=== PATIENT | female | born 1995 | race Two or more races ===

== ENCOUNTER 2018-02-15 16:30 | Emergency (ER) | payer MEDICAID ==
[~2018-02-15] VITALS: Ht 162.6 cm; Wt 81.6 kg
--- NOTE | 2018-02-15 16:52 | NUR ---
ED Nurse Note: Pt came in from work due to pain on L sided check that radiates to neck, get worse with movement 8/10 daniel 1 hr prior to arrival. 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 AOx4, VSS. Will cont to monitor.
[2018-02-15 16:53] VITALS: BP 120/80
--- NOTE | 2018-02-15 17:28 | NUR ---
ED Nurse Note: Xray at the bedside.
--- NOTE | 2018-02-15 17:48 | Emergency Room Report ---
History of Present Illness General Chief Complaint: Chest Pain Source: Patient Present Illness HPI 22-year-old female patient presents the ER complaining of pain times 1 day. Reports pain symptoms began about an hour ago. Denies history of similar symptom in the past. Denies history of [place], stroke, heart attack, asthma. Denies fever or shortness of breath. Denies calf pain. Denies contacts with similar symptoms. Reports pain is reproducible. Reports pain on top of chest. Reports pain with palpation. Denies acute injury or trauma. Denies other aggravating or relieving factors. Denies cough. Patient History Past Medical History: see triage record Now: No Reviewed Nursing Documentation: PMH: Agreed; PSxH: Agreed Nursing Documentation-PMH Past Medical History: No Stated History Hx Asthma: No - was given an inhaler Review of Systems All Other Systems: negative except mentioned in HPI Physical Exam Vital Signs Date Time Temp Pulse Resp B/P (MAP) Pulse Ox O2 Delivery O2 Flow Rate FiO2 02/15/18 16:41 98.4 86 15 118/83 96 Room Air 02/15/18 16:53 98 Sp02 EP Interpretation: reviewed, normal General Appearance: well appearing, no apparent distress, alert, GCS 15, non- toxic Head: normocephalic, atraumatic Eyes: bilateral eye normal inspection, bilateral eye PERRL ENT: hearing grossly normal, normal pharynx, no angioedema, normal voice, uvula midline, moist mucus membranes Neck: full range of motion Respiratory: lungs clear, normal breath sounds, no rhonchi, no respiratory distress, no accessory muscle use, no wheezing, speaking full sentences, other - chest tender to palpation, no deformity, no flail chest, no stridor Cardiovascular #1: regular rate, rhythm, no edema Gastrointestinal: non tender, soft, no mass, non-distended, no guarding, no rebound Genitourinary: no CVA tenderness Musculoskeletal: back normal, digits/nails normal, gait/station normal, normal range of motion, non-tender Neurologic: alert, oriented x3, responsive, motor strength/tone normal, sensory intact Psychiatric: mood/affect normal Skin: no rash Lymphatic: no adenopathy Medical Decision Making PA Attestation Dr. Arnett is my supervising Physician whom patient management has been discussed with. Diagnostic Impression: Primary Impression: Nonspecific chest pain ER Course Pt presents to ED c/o chest pain for the past few hours. DDX considered but are not limited to influenza, viral URI, pneumonia, costochondritis, pericarditis, [place], CHF, pneumothorax. On PE, chest is TTP; chest pain likely musculoskeletal in nature, does not require cardiac workup at this time. Patient instructed to take NSAIDs as needed for pain symptoms. VITAL SIGNS are WNL, patient is afebrile. ER COURSE: Provided with pain medication. Lungs clear to auscultation, no wheezes, rhonci or rales. patient afebrile. CXR negative for acute disease. EKG shows no ST elevation or afib. Pain reproducible, chest TTP, CXR and EKG negative, low suspicion for cardiac etiology of symptoms, likely MSK in nature. Advised patient to followup with PCP and discuss referral to cardiology for stress testing and further evaluation. Symptomatic treatment. Will provide muscle relaxant for muscular pain. drink plenty of fluids. Followup with PCP for further treatment and/or referral as needed. ER precautions given. DISCHARGE: At this time pt is stable for d/c to home. Patient is resting comfortably, in no acute distress, nontoxic appearing. Patient to take medications as instructed Will provide with patient care instructions and any necessary prescriptions. Care plan and follow-up instructions provided. Patient instructed to follow-up with primary care provider in 3 - 5 days. Patient questions asked and answered. Patient reports understanding and agreement to treatment plan. ER precautions given. Patient instructed to return to ER immediately for any new or worsening of symptoms including but not limited to increasing SOB, persistent fever, intractable vomiting. - Please note that this Emergency Department Report was dictated using [employer] acquisition assistant technology software, occasionally this can lead to erroneous entry secondary to interpretation by the dictation equipment. EKG Diagnostic Results Rate: normal Rhythm: NSR ST Segments: no acute changes ASA given to the pt in ED: No PA Scribe Text Bud Harman PA-C Rhythm Strip Diag. Results EP Interpretation: yes Rate: 87 Rhythm: NSR, no PVC's, no ectopy PA Scribe Text Bud Harman PA-C Chest X-Ray Diagnostic Results Chest X-Ray Diagnostic Results : Chest X-Ray Ordered: Yes # of Views/Limited/Complete: 1 View Indication: Chest Pain EP Interpretation: Yes PA Xray: Interpretation reviewed, by supervising MD, and agrees with findings. Interpretation: no consolidation, no effusion, no pneumothorax, no acute cardiopulmonary disease Impression: No acute disease PA Scribe Text Bud Harman PA-C Last Vital Signs Date Time Temp Pulse Resp B/P (MAP) Pulse Ox O2 Delivery O2 Flow Rate FiO2 02/15/18 16:53 98.3 86 16 120/80 98 Room Air 02/15/18 16:53 98 Disposition: HOME, SELF-CARE Condition: Stable Scripts Methocarbamol* (ROBAXIN*) 500 Mg Tablet 500 MG PO TID, #21 TAB 0 Refills Prov: Jayce Harman 02/15/18 Acetaminophen* (TYLENOL EXTRA STRENGTH*) 500 Mg Tablet 500 MG ORAL Q8H PRN for Prn Headache/Temp > 101, #30 TAB 0 Refills Prov: Jayce Harman 02/15/18 Patient Instructions: Costochondritis, [id number], Nonspecific Chest Pain Additional Instructions: Followup with primary care provider in 3 -5 days. Discuss referral to cardiology and need for cardiac stress testing. Take medications as directed. Patient questions asked and answered. ER precautions given, patient instructed to return to ER immediately for any new or worsening of symptoms. Jayce Harman Feb 15, 2018 17:48
[2018-02-15] MEDS ORDERED: ROBAXIN500 MG PO (17:51)
[2018-02-15] MEDS ORDERED: TYLENOL EXTRA500 MG ORAL (17:51)
[2018-02-15 17:59] VITALS: BP 125/78
--- NOTE | 2018-02-15 18:00 | NUR ---
ED Nurse Note: Discharge instructions given to pt. Answered all questions. Verbalized understanding. No acute distres noted. A+ O x4. Ambulatory. Left ER w/ steady gait. Left w/ all belongings. ID band removed.
--- NOTE | 2018-02-16 08:38 | Diagnostic Imaging Report ---
Indication: Chest pain Technique: One view of the chest Comparison: none Findings: Lungs and pleural spaces are clear. Heart size is normal Impression: No acute process
== END 2018-02-15 17:59 | disposition home or self-care (01) ==
LOC: EMR 17:00
DX: R07.9 Chest pain, unspecified (principal)
CPT/HCPCS: 71045; 93005; 99283